=== PATIENT | male | born 1955 ===

== ENCOUNTER → 2022-04-16 09:35 | Outpatient (BNVA) | payer MEDICARE, MEDICAID, SELFPAY | PROVIDERS: PCP Internal Medicine; Visit Provider Nurse Practitioner Family | DX: G89.29 Other chronic pain (principal); M25.512 Pain in left shoulder; M25.551 Pain in right hip; M25.562 Pain in left knee; M62.838 Other muscle spasm; M47.812 Spondylosis without myelopathy or radiculopathy, cervical region; M12.812 Other specific arthropathies, not elsewhere classified, left shoulder; C34.90 Malignant neoplasm of unspecified part of unspecified bronchus or lung | CPT/HCPCS: 99202 ==